=== PATIENT | male | born 1985 | race Native Hawaiian/Other Pacific Islander ===

== ENCOUNTER 2016-09-21 02:24 | Inpatient (IN) | payer SELFPAY ==
[2016-09-21] MEDS ORDERED: DILAUDID ONE (04:38)
[2016-09-21] MEDS ORDERED: ZOFRAN ONE (04:38)
[2016-09-21] MEDS ORDERED: DILAUDID IV ONE (04:41)
[2016-09-21] MEDS ORDERED: ZOFRAN IV ONE (04:41)
[2016-09-21 04:43] LABS: Basophils % (Auto) 0.2 % (0.0-1.8); Eosinophils % (Auto) 0.1 % (0.0-4.3); Hematocrit 45.5 % (35.5-45.6); Hemoglobin 15.2 gm/dl (11.8-15.2); Mean Corpuscular HGB Conc 34 % (32-34); Mean Corpuscular Hemoglobin 29 pg (28-32); Mean Corpuscular Volume 85 fl (84-94); Platelet Count 259 K/mm3 (140-440); Red Blood Count 5.35 M/mm3 (3.65-5.03); Red Cell Distribution Width 13.8 % (13.2-15.2); White Blood Count 16.5 K/mm3 (4.5-11.0)
[2016-09-21 05:09] LABS: Alanine Aminotransferase 49 units/L (7-56); Albumin 4.1 g/dL (3.9-5); Alkaline Phosphatase 63 units/L (35-129); Anion Gap 21 mmol/L; Blood Urea Nitrogen 16 mg/dL (9-20); Calcium 8.9 mg/dL (8.4-10.2); Carbon Dioxide 22 mmol/L (22-30); Chloride 101.5 mmol/L (98-107); Glucose 141 mg/dL (75-100); Lipase 20 units/L (13-60); Potassium 3.5 mmol/L (3.6-5.0); Sodium 141 mmol/L (137-145); Total Protein 8.1 g/dL (6.3-8.2)
--- NOTE | 2016-09-21 07:07 | Emergency Department Report ---
ED Abdominal Pain HPI - General Chief Complaint: Abdominal Pain Stated Complaint: ABD PAIN, HURTS TO VOID Time Seen by Provider: 09/21/16 07:03 Source: patient Mode of arrival: Ambulatory Limitations: Language Barrier - History of Present Illness Initial Comments: Patient complains of left lower quadrant pain for the last at least 10 hours. He states he's not had pain like this before. He was medicated for my encounter and states he is feeling some better. The pain has been constant and nonradiating. He states that he's had difficulty in urinating. He was not able to produce a urine specimen. Therefore, the nurses inserted a Tobin catheter. He did have ample urine output out the Tobin catheter. I don't know the exact residual volume but it looked like he had 400 mL at least in the bag. He does not complain of dysuria. Does not report any fever or chills. He's had no prior surgery. History was obtained in Tongan. MD Complaint: abdominal pain -: Gradual, hour(s) Location: LLQ Radiation: none Severity: moderate, severe Quality: aching Consistency: constant Improves With: nothing Worsens With: nothing - Related Data Home Medications Medication Instructions Recorded Confirmed Last Taken No Known Home Medications [No 09/21/16 09/21/16 Unknown Reported Home Medications] Allergies Allergy/AdvReac Type Severity Reaction Status Date / Time No Known Allergies Allergy Verified 09/21/16 04:45 ED Review of Systems ROS: Stated complaint: ABD PAIN, HURTS TO VOID Other details as noted in HPI Constitutional: denies: chills, fever Eyes: denies: eye pain, eye discharge, vision change ENT: denies: ear pain, throat pain Respiratory: denies: cough, shortness of breath, wheezing Cardiovascular: denies: chest pain, palpitations Endocrine: no symptoms reported Gastrointestinal: as per HPI, abdominal pain. denies: nausea, vomiting, diarrhea Genitourinary: as per HPI, other (hesitancy/unable to urinate). denies: urgency , dysuria Musculoskeletal: denies: back pain, joint swelling, arthralgia Skin: denies: rash, lesions Neurological: denies: headache, weakness, paresthesias Psychiatric: denies: anxiety, depression Hematological/Lymphatic: denies: easy bleeding, easy bruising ED Past Medical Hx - Past Medical History Previous Medical History?: No - Surgical History Past Surgical History?: No - Social History Smoking Status: Never Smoker Substance Use Type: None - Medications Home Medications: Home Medications Medication Instructions Recorded Confirmed Last Taken Type No Known Home Medications [No 09/21/16 09/21/16 Unknown History Reported Home Medications] ED Physical Exam - General Limitations: No Limitations General appearance: alert, in no apparent distress - Head Head exam: Present: atraumatic, normocephalic - Eye Eye exam: Present: normal appearance - ENT ENT exam: Present: normal exam, mucous membranes moist - Neck Neck exam: Present: normal inspection - Respiratory Respiratory exam: Present: normal lung sounds bilaterally. Absent: respiratory distress - Cardiovascular Cardiovascular Exam: Present: regular rate, normal rhythm. Absent: systolic murmur, diastolic murmur, rubs, gallop - GI/Abdominal GI/Abdominal exam: Present: soft, tenderness (tenderness to palpation in the left lower quadrant. No rosario rebound or peritoneal signs.), normal bowel sounds. Absent: distended, guarding, rebound, rigid, organomegaly, mass, bruit , pulsatile mass, hernia - Rectal Rectal exam: Present: deferred - Extremities Exam Extremities exam: Present: normal inspection - Back Exam Back exam: Present: normal inspection. Absent: CVA tenderness (R), CVA tenderness (L), muscle spasm, paraspinal tenderness, vertebral tenderness - Neurological Exam Neurological exam: Present: alert, oriented X3, CN II-XII intact. Absent: motor sensory deficit - Psychiatric Psychiatric exam: Present: normal affect, normal mood - Skin Skin exam: Present: warm, dry, intact, normal color. Absent: rash ED Course Vital Signs 09/21/16 09/21/16 09/21/16 04:01 06:11 06:12 Temperature 98.4 F Pulse Rate 78 105 H Respiratory 18 18 18 Rate Blood Pressure 122/80 Blood Pressure 126/73 [Right] O2 Sat by Pulse 98 96 99 Oximetry 09/21/16 09/21/16 09/21/16 07:15 07:38 08:35 Temperature 101 F H 101.4 F H 101 F H Pulse Rate 113 H 110 H Respiratory 16 16 Rate Blood Pressure Blood Pressure 115/68 119/76 [Right] O2 Sat by Pulse 95 100 Oximetry 09/21/16 10:22 Temperature 100.9 F H Pulse Rate 108 H Respiratory 16 Rate Blood Pressure Blood Pressure 105/70 [Right] O2 Sat by Pulse 98 Oximetry - Reevaluation(s) Reevaluation #1: The patient received a bolus of IV fluids and intravenous Zosyn. A CT of his abdomen was consistent with colitis. He was admitted to the hospitalist service for further care and evaluation in stable condition. 09/21/16 14:49 ED Medical Decision Making - Lab Data Result diagrams: 09/21/16 04:29 09/21/16 04:29 Laboratory Results - last 24 hr 09/21/16 09/21/16 04:29 04:29 WBC 16.5 H RBC 5.35 H Hgb 15.2 Hct 45.5 MCV 85 MCH 29 MCHC 34 RDW 13.8 Plt Count 259 Lymph % (Auto) 10.2 L [place] % (Auto) 5.9 Eos % (Auto) 0.1 Baso % (Auto) 0.2 Lymph # 1.7 [place] # 1.0 H Eos # 0.0 Baso # 0.0 Seg Neutrophils % 83.6 H Seg Neutrophils # 13.8 H Carbon Dioxide 22 BUN 16 Creatinine 0.8 Estimated GFR > 60 BUN/Creatinine Ratio 20.00 Glucose 141 H Calcium 8.9 Total Bilirubin 0.60 AST 34 ALT 49 Alkaline Phosphatase 63 Total Protein 8.1 Albumin 4.1 Albumin/Globulin Ratio 1.0 Lipase 20 NA 141 K 3.5 CL 101.5 AG 21 - Radiology Data Radiology results: report reviewed (colitis sigmoid colon) Critical care attestation.: If time is entered above; I have spent that time in minutes in the direct care of this critically ill patient, excluding procedure time. ED Disposition Clinical Impression: Colitis Disposition: OP ADMITTED IP TO THIS HOSP Is pt being admited?: Yes Does the pt Need Aspirin: No Condition: Stable Time of Disposition: 14:51
[2016-09-21] MEDS ORDERED: NACL 0.9% 1000 ML 1,000 ML IV ONE (07:16)
[2016-09-21] MEDS ORDERED: ZOSYN/NS 4.5GM/100ML 4.5 GM/100 ML VIAL IV ONE (07:16)
--- NOTE | 2016-09-21 07:20 | Admit Criteria Form ---
Admission Criteria Documentation: ABDOMINAL PAIN Clinical Indications for Admission to Inpatient Care (Place 'X' for any and all applicable criteria): Admission is indicated for ANY ONE of the following(1)(2)(3)(4)(5): [X ]I. Inpatient admission required rather than observation care (Also use Abdominal Pain: Observation Care, as appropriate) because of ANY ONE of the following: [ ]a) Severe pain requiring acute inpatient management [X ]b) Identification of etiology/finding that requires inpatient care (eg, aortic dissection, free air) [ ]c) Absent bowel sounds with complete ileus(6) [ ]d) Suspected toxic megacolon [ ]e) Severe electrolyte abnormalities requiring inpatient care [ ]f) High fever or infection requiring inpatient admission as indicated by ANY ONE of following(7)(8): [ ] i) Appropriate outpatient or observational care antimicrobial treatment unavailable, not effective, or not feasible [ ] ii) Documented bacteremia [ ] iii) Temperature > 104.9 degrees F (oral) [ ] iv) T >103.1 F (oral) or < 96.8 F(rectal) that does not respond to all emergency treatment measures [ ]g) Signs of intestinal obstruction [B] [ ]h) Hemodynamic instability [ ]i) IV fluid to replace significant ongoing losses (greater than 3 L/m2 per day) (12)(13) [ ]j) Percutaneous or open drainage (eg, abscess, biliary tract ) procedures [ ]k) Parenteral nutrition regimen that must be implemented on inpatient basis [X ]l) Other condition,treatment or monitoring requiring inpatient admission. [ ]II. Peritoneal signs present [ ]III. Surgery needed that cannot be performed on an ambulatory basis. [ ]IV. Evaluation requires patient to not eat or drink for extended period ( eg, more than 24 hours). [ ]V. Contraindications and/or Inappropriate clinical situations for Observational Care in patients with abdominal pain, when ANY ONE of the following is required: [ ]a) Thorough evaluation is required to prevent catastrophic events due to delays in diagnosing (e.g.Mesenteric ischemia) 1,3 [ ]b) Patient with severe pathology or with chronic symptoms unlikely to improve in the ED stay (3) [ ]. General contraindications and/or Inappropriate clinical situations for Observational Care in patients with abdominal pain, when ANY ONE of the following is required: [ ]a) Prediction of prolongation of LOS based on ANY ONE of the following may be considered as a contraindication for observational care 2, 3, 4, 5, 6, 7, 8, 9, 10, 11 [ ]i) Age > 65 yrs. [ ]ii) Patient arriving by ambulance [ ]iii) Patient with high acuity [ ]iv) Patient requiring vital sign monitoring [ ]v) Patient on IV medication [ ]b) Systolic blood pressures 180mmHg 3,12 [ ]c) Patient with altered mental status including delirium and other alteration of consciousness, (3) [ ]d) Patient whose discharge disposition will be to a [facility] home or rehabilitation home should not be managed in Emergency Department Observation Unit. CMS rule requires 3 days hospital stay before such placement.3,13 [ ]e) Patient with failure to thrive due to broad array of etiologies 3,16,17 [ ]f) Inability to ambulate 3,14 Extended stay beyond goal length of stay may be needed for(2)(3): [ ]a) Persistent abdominal pain with suspected intra-abdominal process [ ]b) Diagnosed condition requiring continued stay (e.g., pancreatitis, complicated diverticulitis) [ ]c) Surgery (e.g., colectomy) The original [facility] content created by [employer] has been revised. The portions of the content which have been revised are identified through the use of italic text or in bold, and [facility] has neither reviewed nor approved the modified material.All other unmodified content is copyright [facility]. Please see references footnoted in the original [facility] edition 2016 Admission Criteria Met: Yes
[2016-09-21] MEDS ORDERED: TYLENOL PR ONE (07:29)
[2016-09-21] MEDS ORDERED: NACL ONE (07:38)
--- NOTE | 2016-09-21 08:15 | Cat Scan Report ---
CT SCAN OF THE ABDOMEN AND PELVIS WITH CONTRAST: HISTORY: Left lower quadrant abdominal pain. TECHNIQUE: Helical CT in 1.25mm intervals following IV contrast. Sagittal and coronal reconstructions. FINDINGS: No comparison at this facility. There is moderate circumferential thickening of the sigmoid colon with mild surrounding inflammatory fat stranding. 2 diverticula are identified within the sigmoid colon. I suppose and acute diverticulitis could be considered but I feel this is more consistent with a focal colitis. The remaining bowel loops and appendix are within normal limits. There is no evidence for bowel obstruction, free air or abscess. The liver is normal in size and is without focal defect. Mild diffuse fatty infiltration is noted. No gallstones or biliary dilatation are noted. The spleen and pancreas demonstrate a normal size and attenuation with no evidence of abnormal mass. The kidneys are normal in size and position with no evidence of hydronephrosis or mass. The adrenal glands are normal. The abdominal aorta is normal. There is no evidence of any abnormal masses or fluid collections within the pelvis. No adenopathy is identified. The bladder is normal. IMPRESSION: Moderate inflammation of the sigmoid colon as described above. Correlate for colitis.
[2016-09-21 09:42] LABS: Bacteria,Urine 1+ /HPF (Negative); Bilirubin,Urine NEG (Negative); Blood,Urine NEG (Negative); Ketones,Urine NEG (Negative); Leukocyte Esterase,Urine TR (Negative); Mucus,Urine FEW /HPF; Nitrite,Urine NEG (Negative); Protein,Urine <15 mg/dL mg/dL (Negative); Urobilinogen,Urine < 2.0 mg/dL (<2.0)
[2016-09-21] MEDS ORDERED: TYLENOL PO PRN (10:00)
[2016-09-21] MEDS ORDERED: ZOFRAN IV PRN (10:00)
[2016-09-21] MEDS ORDERED: MILK OF MAGNESIA PO PRN (10:00)
[2016-09-21] MEDS ORDERED: DULCOLAX PR PRN (10:00)
--- NOTE | 2016-09-21 10:22 | History and Physical Report ---
History of Present Illness Chief complaint: Abdominal pain History of present illness: 31-year-old man with no significant past medical history who presents with left lower quadrant abdominal pain for about one week. He notes that he had tried to see a doctor on the outside was ordered for x-ray but he did not quite make it to get it done. He describes the pain as dull 6 out of 10 in the left lower quadrants, exacerbated by eating, no relieving factors. He admits fevers, denies chills, denies bloody bowel movements, denies nausea or vomiting Past History Past Medical History: No medical history Past Surgical History: No surgical history Social history: no significant social history Family history: no significant family history Medications and Allergies Allergies Allergy/AdvReac Type Severity Reaction Status Date / Time No Known Allergies Allergy Verified 09/21/16 04:45 Home Medications Medication Instructions Recorded Confirmed Last Taken Type No Known Home Medications [No 09/21/16 09/21/16 Unknown History Reported Home Medications] Active Meds: Active Medications Acetaminophen (Tylenol) 650 mg PO Q4H PRN PRN Reason: Pain MILD(1-3)/Fever >100.5/VORA Bisacodyl (Dulcolax) 10 mg IA QDAY PRN PRN Reason: Constipation unrelieved by MOM Levofloxacin/Dextrose (Levaquin 750mg/150ml) 750 mg in 150 mls @ 100 mls/hr IV Q24HR ADEEL PRN Reason: Protocol Metronidazole (Flagyl 500 Mg/100 Ml) 500 mg in 100 mls @ 100 mls/hr IV Q8HR ADEEL Sodium Chloride (Nacl 0.9% 1000 Ml) 1,000 mls @ 125 mls/hr IV DIRECT ADEEL Magnesium Hydroxide (Milk Of Magnesia) 30 ml PO Q4H PRN PRN Reason: Constipation Morphine Sulfate (Morphine) 2 mg IV Q4H PRN PRN Reason: Pain, Moderate (4-6) Ondansetron HCl (Zofran) 4 mg IV Q8H PRN PRN Reason: N/V unrelieved by Reglan Review of Systems All systems: negative Constitutional: fatigue, malaise Gastrointestinal: abdominal pain, loss of appetite Exam - Constitutional Vitals: Temp Pulse Resp BP Pulse Ox 101 F H 110 H 16 119/76 100 09/21/16 08:35 09/21/16 08:35 09/21/16 08:35 09/21/16 08:35 09/21/16 08:35 General appearance: Present: no acute distress, well-nourished - EENT Eyes: Present: PERRL ENT: hearing intact, clear oral mucosa - Neck Neck: Present: supple, normal ROM - Respiratory Respiratory effort: normal Respiratory: bilateral: CTA - Cardiovascular Heart Sounds: Present: S1 & S2. Absent: rub, click - Extremities Extremities: pulses symmetrical, No edema Peripheral Pulses: within normal limits - Abdominal General gastrointestinal: Present: soft, tender (to deep palpation left lower quadrant), non-distended, normal bowel sounds Male genitourinary: Present: normal - Integumentary Integumentary: Present: clear, warm, dry - Musculoskeletal Musculoskeletal: gait normal, strength equal bilaterally - Psychiatric Psychiatric: appropriate mood/affect, intact judgment & insight - Neurologic Neurologic: CNII-XII intact, moves all extremities Results - Labs CBC & Chem 7: 09/21/16 04:29 09/21/16 04:29 Labs: Laboratory Last Values WBC 16.5 K/mm3 (4.5-11.0) H 09/21/16 04:29 RBC 5.35 M/mm3 (3.65-5.03) H 09/21/16 04:29 Hgb 15.2 gm/dl (11.8-15.2) 09/21/16 04:29 Hct 45.5 % (35.5-45.6) 09/21/16 04:29 MCV 85 fl (84-94) 09/21/16 04:29 MCH 29 pg (28-32) 09/21/16 04:29 MCHC 34 % (32-34) 09/21/16 04:29 RDW 13.8 % (13.2-15.2) 09/21/16 04:29 Plt Count 259 K/mm3 (140-440) 09/21/16 04:29 Lymph % (Auto) 10.2 % (13.4-35.0) L 09/21/16 04:29 [place] % (Auto) 5.9 % (0.0-7.3) 09/21/16 04:29 Eos % (Auto) 0.1 % (0.0-4.3) 09/21/16 04:29 Baso % (Auto) 0.2 % (0.0-1.8) 09/21/16 04:29 Lymph # 1.7 K/mm3 (1.2-5.4) 09/21/16 04:29 [place] # 1.0 K/mm3 (0.0-0.8) H 09/21/16 04:29 Eos # 0.0 K/mm3 (0.0-0.4) 09/21/16 04:29 Baso # 0.0 K/mm3 (0.0-0.1) 09/21/16 04:29 Seg Neutrophils % 83.6 % (40.0-70.0) H 09/21/16 04:29 Seg Neutrophils # 13.8 K/mm3 (1.8-7.7) H 09/21/16 04:29 Carbon Dioxide 22 mmol/L (22-30) 09/21/16 04:29 BUN 16 mg/dL (9-20) 09/21/16 04:29 Creatinine 0.8 mg/dL (0.8-1.5) 09/21/16 04:29 Estimated GFR > 60 ml/min 09/21/16 04:29 BUN/Creatinine Ratio 20.00 % 09/21/16 04:29 Glucose 141 mg/dL (75-100) H 09/21/16 04:29 Calcium 8.9 mg/dL (8.4-10.2) 09/21/16 04:29 Total Bilirubin 0.60 mg/dL (0.1-1.2) 09/21/16 04:29 AST 34 units/L (5-40) 09/21/16 04:29 ALT 49 units/L (7-56) 09/21/16 04:29 Alkaline Phosphatase 63 units/L (35-129) 09/21/16 04:29 Total Protein 8.1 g/dL (6.3-8.2) 09/21/16 04:29 Albumin 4.1 g/dL (3.9-5) 09/21/16 04:29 Albumin/Globulin Ratio 1.0 % 09/21/16 04:29 Lipase 20 units/L (13-60) 09/21/16 04:29 Urine Color Yellow (Yellow) 09/21/16 04:46 Urine Turbidity Clear (Clear) 09/21/16 04:46 Urine pH 9.0 (5.0-7.0) H 09/21/16 04:46 Ur Specific [place] 1.058 (1.003-1.030) H 09/21/16 04:46 Urine Protein <15 mg/dl mg/dL (Negative) 09/21/16 04:46 Urine Glucose (UA) Neg mg/dL (Negative) 09/21/16 04:46 Urine Ketones Neg mg/dL (Negative) 09/21/16 04:46 Urine Blood Neg (Negative) 09/21/16 04:46 Urine Nitrite Neg (Negative) 09/21/16 04:46 Urine Bilirubin Neg (Negative) 09/21/16 04:46 Urine Urobilinogen < 2.0 mg/dL (<2.0) 09/21/16 04:46 Ur Leukocyte Esterase Tr (Negative) 09/21/16 04:46 Urine WBC (Auto) 2.0 /HPF (0.0-6.0) 09/21/16 04:46 Urine RBC (Auto) 5.0 /HPF (0.0-6.0) 09/21/16 04:46 Urine Bacteria (Auto) 1+ /HPF (Negative) 09/21/16 04:46 Urine Mucus Few /HPF 09/21/16 04:46 - Imaging and Cardiology CT scan - abdomen: image reviewed (sigmoid colitis) Assessment and Plan Assessment and plan: 31-year-old man with no significant past medical history who presented with abdominal pain, found to have sigmoid colitis 1. Sepsis Continue sepsis protocol Patient did not meet sepsis criteria initially upon presentation and was already given antibiotics for treatment of colitis, and therefore blood cultures were not done prior to antibiotic administration; however spiked a fever some hours later -Check lactate level, Crystaloid IVF 2. Sigmoid colitis Continue IV antibiotics, continue IV fluids. start clear liquid diet and ADAT 3. Hypokalemia replete IV DVT prophylaxis: Lovenox Plan of care discussed with patient/family: Yes
[2016-09-21] MEDS: LEVAQUIN 750MG/150ML 750 MG/150 ML BAG IV SCH (10:23)
[2016-09-21] MEDS: KCL 10MEQ/100ML 10 MEQ/100 ML BAG IV SCH ×3 (11:00→22:40)
[2016-09-21] MEDS: NACL 0.9% 1000 ML 1,000 ML IV SCH (12:26)
[2016-09-21] MEDS: MORPHINE IV PRN ×2 (13:30→19:12)
[2016-09-21] MEDS: FLAGYL 500 MG/100 ML 500 MG/100 ML BAG IV SCH ×2 (13:30→21:28)
[2016-09-22] MEDS: KCL 10MEQ/100ML 10 MEQ/100 ML BAG IV SCH (00:28)
[2016-09-22] MEDS: NACL 0.9% 1000 ML 1,000 ML IV SCH ×3 (01:39→21:04)
[2016-09-22] MEDS: FLAGYL 500 MG/100 ML 500 MG/100 ML BAG IV SCH ×3 (06:00→21:04)
[2016-09-22] MEDS: LEVAQUIN 750MG/150ML 750 MG/150 ML BAG IV SCH (09:15)
[2016-09-22 10:30] LABS: Basophils % (Auto) 0.3 % (0.0-1.8); Eosinophils % (Auto) 0.1 % (0.0-4.3); Hematocrit 41.6 % (35.5-45.6); Hemoglobin 13.6 gm/dl (11.8-15.2); Mean Corpuscular HGB Conc 33 % (32-34); Mean Corpuscular Hemoglobin 28 pg (28-32); Mean Corpuscular Volume 86 fl (84-94); Platelet Count 208 K/mm3 (140-440); Red Blood Count 4.81 M/mm3 (3.65-5.03); Red Cell Distribution Width 14.1 % (13.2-15.2)
[2016-09-22 10:57] LABS: Anion Gap 18 mmol/L; BUN/Creatinine Ratio 12.85; Blood Urea Nitrogen 9 mg/dL (9-20); Calcium 8.3 mg/dL (8.4-10.2); Carbon Dioxide 22 mmol/L (22-30); Chloride 100.9 mmol/L (98-107); Glucose 70 mg/dL (75-100); Potassium 3.6 mmol/L (3.6-5.0); Sodium 137 mmol/L (137-145)
[2016-09-22] MEDS: MORPHINE IV PRN ×2 (11:51→21:13)
--- NOTE | 2016-09-22 15:32 | Progress Note ---
Assessment and Plan Assessment and plan: 31-year-old man with no significant past medical history who presented with abdominal pain, found to have sigmoid colitis 1. Sepsis Continue sepsis protocol 2. Sigmoid colitis Continue IV antibiotics, continue IV fluids. ADAT 3. Hypokalemia repleted IV, and normalized DVT prophylaxis: Lovenox History Interval history: Consequently of left low quadrant tenderness and pain. He states that the pain is dull 4-6 out of 10 that, does not radiate, exacerbated by eating and by using the bathroom. Denies dysuria, denies urinary retention. States that the fevers seem to be going away Hospitalist Physical - Physical exam Narrative exam: General appearance: Present: no acute distress, well-nourished - EENT Eyes: Present: PERRL ENT: hearing intact, clear oral mucosa - Neck Neck: Present: supple, normal ROM - Respiratory Respiratory effort: normal Respiratory: bilateral: CTA - Cardiovascular Heart Sounds: Present: S1 & S2. Absent: rub, click - Extremities Extremities: pulses symmetrical, No edema Peripheral Pulses: within normal limits - Abdominal General gastrointestinal: Present: soft, tender (to deep palpation left lower quadrant), non-distended, normal bowel sounds Male genitourinary: Present: normal - Integumentary Integumentary: Present: clear, warm, dry - Musculoskeletal Musculoskeletal: gait normal, strength equal bilaterally - Psychiatric Psychiatric: appropriate mood/affect, intact judgment & insight - Neurologic Neurologic: CNII-XII intact, moves all extremities - Constitutional Vitals: Temp Pulse Resp BP Pulse Ox 99.7 F H 101 H 20 118/69 99 09/22/16 08:00 09/22/16 08:00 09/22/16 08:00 09/22/16 08:00 09/22/16 08:00 General appearance: Present: no acute distress, well-nourished Results - Labs CBC & Chem 7: 09/22/16 05:00 09/22/16 05:00 Labs: Laboratory Last Values WBC 15.0 K/mm3 (4.5-11.0) H 09/22/16 05:00 RBC 4.81 M/mm3 (3.65-5.03) 09/22/16 05:00 Hgb 13.6 gm/dl (11.8-15.2) 09/22/16 05:00 Hct 41.6 % (35.5-45.6) 09/22/16 05:00 MCV 86 fl (84-94) 09/22/16 05:00 MCH 28 pg (28-32) 09/22/16 05:00 MCHC 33 % (32-34) 09/22/16 05:00 RDW 14.1 % (13.2-15.2) 09/22/16 05:00 Plt Count 208 K/mm3 (140-440) 09/22/16 05:00 Lymph % (Auto) 8.8 % (13.4-35.0) L 09/22/16 05:00 [place] % (Auto) 6.3 % (0.0-7.3) 09/22/16 05:00 Eos % (Auto) 0.1 % (0.0-4.3) 09/22/16 05:00 Baso % (Auto) 0.3 % (0.0-1.8) 09/22/16 05:00 Lymph # 1.3 K/mm3 (1.2-5.4) 09/22/16 05:00 [place] # 0.9 K/mm3 (0.0-0.8) H 09/22/16 05:00 Eos # 0.0 K/mm3 (0.0-0.4) 09/22/16 05:00 Baso # 0.0 K/mm3 (0.0-0.1) 09/22/16 05:00 Seg Neutrophils % 84.5 % (40.0-70.0) H 09/22/16 05:00 Seg Neutrophils # 12.7 K/mm3 (1.8-7.7) H 09/22/16 05:00 Sodium 137 mmol/L (137-145) 09/22/16 05:00 Potassium 3.6 mmol/L (3.6-5.0) 09/22/16 05:00 Chloride 100.9 mmol/L (98-107) 09/22/16 05:00 Carbon Dioxide 22 mmol/L (22-30) 09/22/16 05:00 Anion Gap 18 mmol/L 09/22/16 05:00 BUN 9 mg/dL (9-20) 09/22/16 05:00 Creatinine 0.7 mg/dL (0.8-1.5) L 09/22/16 05:00 Estimated GFR > 60 ml/min 09/22/16 05:00 BUN/Creatinine Ratio 12.85 % 09/22/16 05:00 Glucose 70 mg/dL (75-100) L 09/22/16 05:00 Lactic Acid 1.10 mmol/L (0.7-2.0) 09/21/16 10:33 Calcium 8.3 mg/dL (8.4-10.2) L 09/22/16 05:00 Total Bilirubin 0.60 mg/dL (0.1-1.2) 09/21/16 04:29 AST 34 units/L (5-40) 09/21/16 04:29 ALT 49 units/L (7-56) 09/21/16 04:29 Alkaline Phosphatase 63 units/L (35-129) 09/21/16 04:29 Total Protein 8.1 g/dL (6.3-8.2) 09/21/16 04:29 Albumin 4.1 g/dL (3.9-5) 09/21/16 04:29 Albumin/Globulin Ratio 1.0 % 09/21/16 04:29 Lipase 20 units/L (13-60) 09/21/16 04:29 Urine Color Yellow (Yellow) 09/21/16 04:46 Urine Turbidity Clear (Clear) 09/21/16 04:46 Urine pH 9.0 (5.0-7.0) H 09/21/16 04:46 Ur Specific [place] 1.058 (1.003-1.030) H 09/21/16 04:46 Urine Protein <15 mg/dl mg/dL (Negative) 09/21/16 04:46 Urine Glucose (UA) Neg mg/dL (Negative) 09/21/16 04:46 Urine Ketones Neg mg/dL (Negative) 09/21/16 04:46 Urine Blood Neg (Negative) 09/21/16 04:46 Urine Nitrite Neg (Negative) 09/21/16 04:46 Urine Bilirubin Neg (Negative) 09/21/16 04:46 Urine Urobilinogen < 2.0 mg/dL (<2.0) 09/21/16 04:46 Ur Leukocyte Esterase Tr (Negative) 09/21/16 04:46 Urine WBC (Auto) 2.0 /HPF (0.0-6.0) 09/21/16 04:46 Urine RBC (Auto) 5.0 /HPF (0.0-6.0) 09/21/16 04:46 Urine Bacteria (Auto) 1+ /HPF (Negative) 09/21/16 04:46 Urine Mucus Few /HPF 09/21/16 04:46
[2016-09-23] MEDS: FLAGYL 500 MG/100 ML 500 MG/100 ML BAG IV SCH (05:10)
[2016-09-23] MEDS: NACL 0.9% 1000 ML 1,000 ML IV SCH (05:11)
--- NOTE | 2016-09-23 08:24 | Discharge Summary ---
Providers - Providers Date of Admission: 09/21/16 09:13 Attending physician: CYNTHIA COSTA MD Primary care physician: [employer] HELPER Hospitalization Condition: Stable Hospital course: 31-year-old man with no significant past medical history who presented with abdominal pain, found to have sigmoid colitis 1. Sepsis Continue sepsis protocol 2. Sigmoid colitis Continue IV antibiotics, continue IV fluids. ADAT 3. Hypokalemia repleted IV, and normalized DVT prophylaxis: Lovenox Disposition: DISCHARGED TO HOME OR SELFCARE Time spent for discharge: 35 minutes Core Measure Documentation - Palliative Care Palliative Care/ Comfort Measures: Not Applicable - Core Measures Any of the following diagnoses?: none Exam - Constitutional Vitals: Temp Pulse Resp BP Pulse Ox 99.1 F 104 H 18 117/70 97 09/23/16 00:00 09/23/16 00:00 09/23/16 00:00 09/23/16 00:00 09/23/16 00:00 General appearance: Present: no acute distress, well-nourished - EENT Eyes: Present: PERRL ENT: hearing intact, clear oral mucosa - Neck Neck: Present: supple, normal ROM - Respiratory Respiratory effort: normal Respiratory: bilateral: CTA - Cardiovascular Heart Sounds: Present: S1 & S2. Absent: rub, click - Extremities Extremities: pulses symmetrical, No edema Peripheral Pulses: within normal limits - Abdominal General gastrointestinal: Present: soft, non-tender, non-distended, normal bowel sounds Male genitourinary: Present: normal - Integumentary Integumentary: Present: clear, warm, dry - Musculoskeletal Musculoskeletal: gait normal, strength equal bilaterally - Psychiatric Psychiatric: appropriate mood/affect, intact judgment & insight - Neurologic Neurologic: CNII-XII intact, moves all extremities Plan Follow up with: [facility] [Provider Group] - 7 Days PRIMARY CARE, [Primary Care Provider] - 3-5 Days Prescriptions: Ciprofloxacin HCl [Ciprofloxacin TAB] 500 mg PO Q12H #10 tab metroNIDAZOLE [Flagyl TAB] 250 mg PO Q8HR #15 tablet oxyCODONE /ACETAMINOPHEN [Percocet 5/325] 1 tab PO Q6HR PRN #20 tablet PRN Reason: Pain
[2016-09-23] MEDS: LEVAQUIN 750MG/150ML 750 MG/150 ML BAG IV SCH (09:36)
[2016-09-23 10:01] VITALS: BP 123/64
== END 2016-09-23 14:00 | disposition home or self-care (01) | DRG 872 ==
LOC: ED 02:24 → 3A 09:13
PROVIDERS: ADMIT Internal Medicine; ATTEND Internal Medicine
DX: A41.9 Sepsis, unspecified organism (principal); E87.6 Hypokalemia; K52.89 Other specified noninfective gastroenteritis and colitis
CPT/HCPCS: 36415; 74177; 80048; 80053; 81001; 82140; 83690; 85025; 96365; 96375; J1170; J1956; J2270; J2405; J2543; J3480; J7030; Q9967